=== PATIENT | male | born 1945 | race Asian ===

== ENCOUNTER 2019-09-19 06:00 | Day surgery (SDC) | payer OTHER ==
[~2019-09-19] VITALS: Ht 158.8 cm; Wt 58.2 kg
[~2019-09-19 06:00] MED LIST: ALBUTEROL SULFATE 2.5 MG/0.5 ML NEB SOLUTION NEB ONE; BENZOCAINE 20% 50 MCG/SPRAY 57 GM TP ONE; LIDOCAINE 2% 30 ML JELLY TP ONE; LIDOCAINE 4% 50 ML SOLUTION TP ONE; SODIUM CHLORIDE 0.9% 1,000 ML ONE
[2019-09-19] MEDS ORDERED: SODIUM CHLORIDE 0.9% 1,000 ML IV ONE (06:30)
[2019-09-19] MEDS ORDERED: MIDAZOLAM HCL 2 MG/2 ML VIAL ONE (06:46)
[2019-09-19] MEDS ORDERED: FentaNYL CITRATE-PF 100 MCG/2 ML VIAL ONE (06:46)
[2019-09-19] MEDS ORDERED: MethylPREDNISolone SOD SUCC 125 MG/2 ML VIAL IVP ONE (08:45)
[2019-09-19] MEDS ORDERED: OXYGEN THERAPY IH SCH (20:00)
== END 2019-09-19 10:10 | disposition home or self-care (01) ==
LOC: SURGERY 06:00
PROVIDERS: ATTEND Internal Medicine Critical Care Medicine
DX: R05 Cough (principal); J38.4 Edema of larynx; B37.0 Candidal stomatitis; J45.909 Unspecified asthma, uncomplicated; I10 Essential (primary) hypertension; Z87.891 Personal history of nicotine dependence; Z79.899 Other long term (current) drug therapy; Z98.890 Other specified postprocedural states
CPT/HCPCS: 31623; 31624; 71045; 87015; 87070; 87101; 87205; 87206; 87220; J2250; J2930; J3010; J7030; 88108; 88312

== ENCOUNTER → 2022-10-25 | Day surgery (SDC) | payer OTHER ==
[~2022-10-25] VITALS: Ht 157.5 cm; Wt 56.8 kg
[~2022-10-25] MED LIST changes: +DOXY-354 PO; +FLUT16SP NASAL; +FLUT1BLS IH; +FentaNYL CITRATE PF 100 MCG/2 ML VIAL ONE; +LIDOCAINE 2% 11 ML JELLY TP ONE; -LIDOCAINE 2% 30 ML JELLY TP ONE; +MIDAZOLAM HCL 2 MG/2 ML VIAL ONE; +MethylPREDNISolone SOD SUCC 125 MG/2 ML VIAL IVP ONE; +MethylPREDNISolone SOD SUCC 125 MG/2 ML VIAL ONE; +OXYGEN THERAPY IH SCH; +SODIUM CHLORIDE 0.9% 1,000 ML IV ONE
[2022-10-25 07:19] LABS: COVID AG,FIA SOURCE NASAL SWAB
== END | disposition still patient (30) ==
LOC: SURGERY 06:40
PROVIDERS: ATTEND Internal Medicine Critical Care Medicine
DX: J38.4 Edema of larynx (principal); B37.0 Candidal stomatitis; Z20.822 Contact with and (suspected) exposure to COVID-19; Z98.49 Cataract extraction status, unspecified eye; Z87.891 Personal history of nicotine dependence; Z79.899 Other long term (current) drug therapy; Z98.890 Other specified postprocedural states
CPT/HCPCS: 31623; 88112; 87101; 87220; 87070; 87186; 31624; 94640; 71045; 87015; 87426; 87206; J3010; J2250; J2930; Q9967; J7030; C9803; J7613; Z7610